=== PATIENT | female | born 1995 | race Caucasian/White ===

== ENCOUNTER 2018-05-29 14:41 | Emergency (ER) | payer OTHER ==
--- NOTE | 2018-05-29 15:26 | EDPHY ---
H & P Stated Complaint: Fainted 2 seconds, fell to knees 15 min PATIENT ACCOUNT SPECIALIST Time Seen by Provider: 05/29/18 14:54 HPI/ROS: CHIEF COMPLAINT: Fainted HISTORY OF PRESENT ILLNESS: This is a 23-year-old female who had a syncopal episode. She was doing light work, walking, and began to feel lightheaded. Her vision then became"black"and she dropped to her knees. She did not fall to the ground and was able to catch herself. She tells me that she has fainted before and believes that it was due to"low blood sugar". She has not had much of anything to eat or drink yet today. She has a history of substance abuse and is currently in a sober living situation. She has not had blood in her stool or any other overt signs of blood loss. She has not recently been ill. REVIEW OF SYSTEMS: A ten system review of systems was performed and is negative with the exception of the items mentioned in the HPI. Past medical history: Substance abuse Past surgical history: Negative Family history: Her father in his late 50s of a heart aneurysm Social history: She smokes cigarettes. She does not use illicit substances or alcohol. General Appearance: Alert. Vital signs reviewed. Initial heart rate 106 with a blood pressure of 136/91. Orthostatic vital signs reviewed. Eyes: Pupils equal and round, no conjunctival injection, no discharge. Anicteric. ENT, Mouth: Mucous membranes are moist, no oropharyngeal erythema or edema. Neck: No lymphadenopathy, supple. Respiratory: Lungs are clear to auscultation; no wheezes, rales, or rhonchi. Cardiovascular: Regular rate and rhythm--not tachycardic at the time of my exam ; no murmur, rub, or gallop. Gastrointestinal: Abdomen is soft and nontender, no masses or organomegaly, bowel sounds normal. Skin: Warm and dry, no rashes on exposed skin, normal color. Back: Nontender to palpation over the thoracolumbar spine. No CVAT. Extremities: No lower extremity edema, no calf tenderness or swelling. Neurological: Alert and oriented. Moving all four extremities easily and equally. SAVANNAH. EOMI. Facial expressions symmetric. Tongue midline. Psychiatric: Normal affect. - Personal History LMP (Females 10-55): 15-21 Days Ago Current Tetanus Diphtheria and Acellular Pertussis (TDAP): Yes Tetanus Vaccine Date: nsure - Medical/Surgical History Hx Asthma: No Hx Chronic Respiratory Disease: No Hx Diabetes: No Hx Cardiac Disease: No Hx Renal Disease: No Hx Cirrhosis: No Hx Alcoholism: No Hx HIV/AIDS: No Hx Splenectomy or Spleen Trauma: No Other PMH: substance abuse,hypoglycemia - Social History Smoking Status: Current every day smoker Constitutional: Initial Vital Signs Temperature (C) 36.5 C 05/29/18 14:46 Heart Rate 106 H 05/29/18 14:46 Respiratory Rate 18 05/29/18 14:46 Blood Pressure 136/91 H 05/29/18 14:46 O2 Sat (%) 98 05/29/18 14:46 O2 Delivery Mode Room Air Allergies/Adverse Reactions: Penicillins Allergy (Verified 05/29/18 14:46) Pt reports anaphylaxis Home Medications: Medication Instructions Recorded Hydroxyzine HCl 05/29/18 Latuda 05/29/18 Medical Decision Making - Diagnostics EKG Interpretation: 12 lead EKG is interpreted in [place] by emergency department physician. ED Course/Re-evaluation: 23-year-old with syncopal episode. Orthostatic vital signs within normal limits. EKG . She is not anemic. She is not . Differential Diagnosis: Syncope including but not limited to vasovagal syncope, arrhythmia, dehydration , and blood loss. - Data Points Point of Care Test Results: CBC CBC Collection Date 05/29/18 CBC Collection Time 15:05 WBC 7.6 RBC 4.17 HGB 13.5 HCT 39.6 PLT 204 Neut # 5.6 Neut 74.1 LYMPH # 1.5 LYMPH 19.8 Other WBC # 0.5 Other WBC 6.1 MCV 95.0 Urine Collection Date 05/29/18 Collection Time 15:30 HCG Results Negative Departure - Departure Disposition: Home, Routine, Self-Care Clinical Impression: Syncope Condition: Good Instructions: Syncope (ED) Additional Instructions: As we discussed, I have not found a specific reason for the fainting episode that you had today. I suspect that it is just as you suggested--dehydration, lack of food, low blood sugar. Be sure that you are eating and drinking regularly. You should follow up with your primary care provider at [facility]. Referrals: Ray Graham MD [Medical Doctor] - As per Instructions
[2018-05-29 18:29] VITALS: BP 128/88
--- NOTE | 2018-06-01 05:49 | CPEKG ---
Test Reason : syncope Blood Pressure : / mmHG Vent. Rate : 096 BPM Atrial Rate : 097 BPM P-R Int : 136 ms QRS Dur : 074 ms QT Int : 343 ms P-R-T Axes : 072 063 048 degrees QTc Int : 434 ms Sinus rhythm Confirmed by Syed Lima ([id number]) on 06/01/2018 5:49:31 AM Referred By: Confirmed By:Syed Lima
== END 2018-05-29 16:49 | disposition home or self-care (01) ==
LOC: CED 14:41
DX: R55 Syncope and collapse (principal); E16.2 Hypoglycemia, unspecified; F17.200 Nicotine dependence, unspecified, uncomplicated